=== PATIENT | female | born 1995 | race Caucasian/White ===

== ENCOUNTER 2018-03-15 10:46 | Emergency (ER) | payer BC ==
[2018-03-15 11:25] LABS: ABS Basophils 0.1 10^3/ul (0-0.2); ABS Eosinophils 0.1 10^3/ul (0-0.6); ABS Lymphocytes 1.8 10^3/ul (1.0-4.8); ABS Monocytes 0.4 10^3/ul (0-0.8); ABS Nucleated RBC 0 10^3/ul; Eosinophil % 1.7 % (0-6); Hematocrit 42 % (35-47); Hemoglobin 14.2 g/dl (12.0-16.0); Lymphocyte % 27.7 % (25-47); Mean Corpuscular HGB Conc 34 g/dl (31-36); Mean Corpuscular Hemoglobin 28 pg (27-31); Mean Corpuscular Volume 84 fL (80-97); Mean Platelet Volume 8.9 um3 (7.4-10.4); Nucleated Red Blood Cells % 0.1; Platelet Count 232 10^3/ul (150-450); Red Blood Count 5.04 10^6/ul (4.00-5.40); Red Cell Distribution Width 13 % (10.5-15); White Blood Count 6.3 10^3/ul (3.5-10.8)
[2018-03-15 11:33] LABS: INR 1.05 (0.77-1.02)
--- NOTE | 2018-03-15 11:33 | ED ---
HPI Chest Pain - HPI Summary HPI Summary: Pt is a 23 y/o female who presents to the ED c/o CP. She states she felt palpitations in the left side of her neck a few months ago. Pt went to an and was told it was just stress palpitations. 2 weeks ago, she began to feel the palpitations in her chest, especially when lying down. She woke up this morning with 3/10 sharp CP that is not resolving. Pt also c/o fatigue, SOB, CP, and intermittent abdominal pain. She denies any hematochezia, weight loss, or dehydration. She ate some Tums but states they did not help with the CP. Pt notes she has intermittent diarrhea and constipation, but states shes had GI issues for years and believes it is unrelated. No PMHx of blood clots, thyroid issues, or anemia. No FHx heart problems. 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 - History of Current Complaint Chief Complaint: EDDysrhythmPalp Time Seen by Provider: 03/15/18 11:00 Hx Obtained From: Patient Onset/Duration: Started Weeks Ago - A few months ago, Still Present Timing: Intermittent Current Severity: Moderate Pain Intensity: 3 Pain Scale Used: 0-10 Numeric Chest Pain Location: Diffuse Chest Pain Radiates: No Character: Sharp/Stabbing Aggravating Factor(s): Recumbent Position Alleviating Factor(s): Nothing Associated Signs and Symptoms: Positive: Chest Pain, Anxiety - due to CP, Recent Stress - Pharmacist school rotations, Shortness of Breath, Palpitations, Abdominal Pain - Allergy/Home Medications Allergies/Adverse Reactions: Allergies Allergy/AdvReac Type Severity Reaction Status Date / Time No Known Allergies Allergy Verified 03/15/18 10:53 Home Medications: Home Medications Levonorgestrel (IUD) (NF) [Mirena (NF)] 1 each VAGINAL DAILY 03/15/18 [History Confirmed 03/15/18] PMH/Surg Hx/FS Hx/Imm Hx Endocrine/Hematology History: Denies: Hx Blood Disorders - Blood clots, Hx Thyroid Disease, Hx Anemia Cardiovascular History: Denies: Hx Congestive Heart Failure - Surgical History Surgery Procedure, Year, and Place: Knee surgery Infectious Disease History: No Infectious Disease History: Denies: Traveled Outside the [place] in Last 30 Days - Family History Known Family History: Negative: Cardiac Disease - Social History Alcohol Use: None Hx Substance Use: No Substance Use Type: Reports: None Hx Tobacco Use: No Smoking Status (MU): Never Smoked Tobacco Review of Systems Positive: Fatigue Positive: Palpitations, Chest Pain Positive: Shortness Of Breath Positive: Abdominal Pain. Negative: Other - NEGATIVE: hematochezia, weight loss , dehydration All Other Systems Reviewed And Are Negative: Yes Physical Exam - Summary Physical Exam Summary: GENERAL: Patient is a well developed and nourished F who is lying comfortable in the stretcher. Patient is not in any acute respiratory distress. HEAD AND FACE: Normocephalic EYES: PERRLA, EOMI x 2. EARS: Hearing grossly intact. MOUTH: Oropharynx within normal limits. NECK: Supple, trachea is midline, no adenopathy, no JVD, no carotid bruit. CHEST: Symmetric, no tenderness at palpation LUNGS: Clear to auscultation bilaterally. No wheezing or crackles. CVS: Regular rhythm, S1 and S2 present, no murmurs or gallops appreciated. Tachycardic. ABDOMEN: Soft, non-tender. Bowel sounds are normal. No abdominal abnormal pulsations. EXTREMITIES: Full ROM in all major joints, no edema, no cyanosis or clubbing. NEURO: Alert and oriented x 3. No acute neurological deficits. Speech is normal and follows commands. SKIN: Dry and warm Triage Information Reviewed: Yes Vital Signs On Initial Exam: Initial Vitals Temp Pulse Resp BP Pulse Ox 99 F 120 18 117/77 99 03/15/18 10:50 03/15/18 10:50 03/15/18 10:50 03/15/18 10:50 03/15/18 10:50 Vital Signs Reviewed: Yes Diagnostics - Vital Signs Vital Signs Temp Pulse Resp BP Pulse Ox 03/15/18 10:50 99 F 120 18 117/77 99 - Laboratory Lab Results: Lab Results 03/15/18 Range/Units 11:16 WBC 6.3 (3.5-10.8) 10^3/ul RBC 5.04 (4.00-5.40) 10^6/ul Hgb 14.2 (12.0-16.0) g/dl Hct 42 (35-47) % MCV 84 (80-97) fL MCH 28 (27-31) pg MCHC 34 (31-36) g/dl RDW 13 (10.5-15) % Plt Count 232 (150-450) 10^3/ul MPV 8.9 (7.4-10.4) um3 Neut % (Auto) 63.2 (38-83) % Lymph % (Auto) 27.7 (25-47) % Storey % (Auto) 6.4 (0-7) % Eos % (Auto) 1.7 (0-6) % Baso % (Auto) 1.0 (0-2) % Absolute Neuts (auto) 4.0 (1.5-7.7) 10^3/ul Absolute Lymphs (auto) 1.8 (1.0-4.8) 10^3/ul Absolute Monos (auto) 0.4 (0-0.8) 10^3/ul Absolute Eos (auto) 0.1 (0-0.6) 10^3/ul Absolute Basos (auto) 0.1 (0-0.2) 10^3/ul Absolute Nucleated RBC 0 10^3/ul Nucleated RBC % 0.1 Result Diagrams: 03/15/18 11:16 03/15/18 11:16 Lab Statement: Any lab studies that have been ordered have been reviewed, and results considered in the medical decision making process. - Radiology CXR Xray Interpretation: No Acute Changes - NO EVIDENCE FOR ACTIVE CARDIOPULMONARY DISEASE. ED physician reviewed radiology report. Radiology Interpretation Completed By: Radiologist - EKG 10:58 Cardiac Rate: Tachycardia - 104 bpm EKG Rhythm: Sinus Rhythm EKG Interpretation: RAD Chest Pain Course/Dx - Course Course Of Treatment: Pt is a 23 y/o female who presents to the ED c/o CP. She states she felt palpitations in the left side of her neck a few months ago. Pt went to an and was told it was just stress palpitations. 2 weeks ago, she began to feel the palpitations in her chest, especially when lying down. She woke up this morning with 3/10 sharp CP that is not resolving. Pt also c/o fatigue, SOB, CP, and intermittent abdominal pain. She denies any hematochezia, weight loss, or dehydration. She ate some Tums but states they did not help with the CP. A physical exam revealed tachycardia. A CXR was negative. An EKG revealed tachycardia at a rate of 104 bpm, and RAD. Work reviewed and are all normal including 2 sets of troponin and a d-dimer. And is low risk for ACS by heart score so low risk for pulmonary embolism and has negative d-dimer. His custom results with the patient in great details. Patient is otherwise hemodynamically stable and is safe for discharge, strict return precautions. Final dx is palpitations. Pt will be discharged and is to follow up with cardiology. She is agreeable with this plan. - Diagnoses Provider Diagnoses: Palpitations Discharge - Sign-Out/Discharge Documenting (check all that apply): Patient Departure - Discharge - Discharge Plan Condition: Stable Disposition: HOME Patient Education Materials: Heart Palpitations (ED) Referrals: [facility] [Outside] Jose Manuel Cotter MD [Medical Doctor] - (1-3 days) Additional Instructions: RETURN TO THE EMERGENCY DEPARTMENT FOR CHANGING OR WORSENING SYMPTOMS. - Billing Disposition and Condition Condition: STABLE Disposition: Home - Attestation Statements Document Initiated by Scribe: Yes Documenting Scribe: Latoya Patino Provider For Whom Scribe is Documenting (Include Credential): Keith Lafleur MD Scribe Attestation: Latoya Prince, scribed for Keith Lafleur MD on 03/16/18 at 0727. Scribe Documentation Reviewed: Yes Provider Attestation: The documentation as recorded by the Latoya salcido accurately reflects the service I personally performed and the decisions made by Keith jaramillo MD
[2018-03-15 11:55] LABS: EGFR Non-African American 95.6 (>60)
[2018-03-15] MEDS ORDERED: NS 0.9% 1000 ML* 1,000 ML IV ONE (12:13)
[2018-03-15] MEDS ORDERED: Ketorolac INJ* 15 MG/ML 1 ML VIAL IV PUSH ONE (12:13)
[2018-03-15 12:20] LABS: Urine Appearance Clear; Urine Blood Negative (Negative); Urine Color Colorless; Urine Ketones Negative (Negative); Urine Protein Negative (Negative); Urine Specific Gravity 1.002 (1.010-1.030); Urine Urobilinogen Negative (Negative)
--- NOTE | 2018-03-15 12:33 | RAD ---
INDICATION: Chest pain. COMPARISON: There are no relevant prior studies available for comparison. TECHNIQUE: Dual-energy PA and lateral views of the chest were obtained. FINDINGS: The heart is within normal limits in size. Mediastinal and hilar contours appear within normal limits. The lungs are clear. No pleural effusion is present. IMPRESSION: NO EVIDENCE FOR ACTIVE CARDIOPULMONARY DISEASE.
[2018-03-15 15:35] VITALS: BP 89/61
== END 2018-03-15 15:39 | disposition home or self-care (01) ==
LOC: ED 10:46
DX: R00.2 Palpitations (principal); R07.9 Chest pain, unspecified; R06.02 Shortness of breath; R53.83 Other fatigue
CPT/HCPCS: 36415; 71046; 80053; 81003; 83605; 83880; 84436; 84443; 84484; 84702; 85025; 85379; 85610; 85730; 93005; 96374; 99283; J1885